=== PATIENT | female | born 1985 | race African-American/Black ===

== ENCOUNTER 2018-01-24 11:33 | Inpatient (IN) ==
[2018-01-24] MEDS ORDERED: FAMOTIDINE 20 MG/2 ML VIAL IV ONE (11:40)
[2018-01-24] MEDS ORDERED: ceFAZolin 2,000 MG in PREMIX 1 EACH IV ONE (11:40)
[2018-01-24] MEDS ORDERED: CITRIC ACID/SODIUM CITRATE 30 ML UDCUP PO ONE (11:40)
[2018-01-24] MEDS ORDERED: OXYTOCIN 30 UNIT in DEXTROSE 5% LACTATED RINGERS 1,000 ML IV ONE (11:44)
[2018-01-24] MEDS ORDERED: OXYTOCIN 10 UNIT/ML VIAL IM ONE (11:44)
[2018-01-24] MEDS ORDERED: SODIUM CHLORIDE 0.9% 1,000 ML IV PRN (11:45)
[2018-01-24] MEDS ORDERED: miSOPROStol 200 MCG TABLET PO ONE ×2 (11:51→18:15)
[2018-01-24] MEDS ORDERED: OXYTOCIN 30 UNIT in LACTATED RINGERS 1,000 ML IV ONE (12:00)
[2018-01-24 12:06] LABS: Basophils % 0.1 % (0.0-0.8); Eosinophils # 0.1 10*3/uL (0.0-0.87); Eosinophils % 1.6 % (0.00-10.9); Hematocrit 28.8 VOL% (35.7-47.0); Immature Granulocytes % 0.3 %; Immature Granulocytes Absolute 0.03 #; Lymphocytes # 1.6 10*3/uL (1.4-4.0); Lymphocytes % 17.9 % (21.3-54.2); Mean Corpuscular HGB Conc 31.3 GM/DL (32-36); Mean Corpuscular Hemoglobin 24 PG (27-34); Mean Corpuscular Volume 77.6 FL (87-102); Mean Platelet Volume 11.3 FL (9.6-12.0); Monocytes # 0.5 10*3/uL (0.11-0.8); Monocytes % 5.2 % (1.7-12.7); Neutrophils # 6.5 10*3/uL (1.4-7.4); Neutrophils % 74.9 % (38.7-73.9); Platelet Count 167 T/CUMM (130-400); Red Blood Count 3.71 MC/CUMM (3.8-5.5); Red Cell Distribution Width 14.7 % (9.3-17.3); White Blood Count 8.7 T/CUMM (4-12)
[2018-01-24 12:17] LABS: Apearance,Urine CLEAR (Clear); Bilirubin,Urine Negative (Negative); Blood, Urine Negative (Negative); Glucose,Urine (UA) Negative (Negative); Hyaline Casts,Urine 1 /LPF (0-3); Ketones,Urine Negative (Negative); Mucus,Urine Occasional /LPF (Occasional); Nitrite,Urine Negative (Negative); Protein,Urine 100 MG/DL; RBC,Urine <1 /HPF (0-4); Squamous Epithelial Cell,Urine Occasional /HPF (0-10); Urine Color Yellow (Yellow); Urine Specific Gravity 1.011 (1.001-1.035); Urine Urobilinogen < 2.0 EU/DL (0.2-1.0); WBC,Urine 1 /HPF (0-6)
[2018-01-24 12:22] LABS: PT Patient Result 10.4 SECS; Partial Thromboplastin Time 30.6 SECS (0-40)
[2018-01-24] MEDS: MEPERIDINE 50 MG/1 ML VIAL IV PRN ×4 (12:22→21:06)
[2018-01-24] MEDS: ONDANSETRON 4 MG/2 ML VIAL IV PRN ×2 (12:25→21:07)
[2018-01-24 13:40] LABS: HIV Antigen/Antibody Result Nonreactive (Nonreactive); Hepatitis B Surface Ag Quant 0.24 Index; Hepatitis B Surface Ag Result Negative (Negative)
[2018-01-24] MEDS: LACTATED RINGERS 1,000 ML IV SCH ×2 (14:00→18:29)
[2018-01-24 14:14] LABS: Barbiturates Screen,Urine Negative (Negative); Benzodiazepines Screen,Urine Positive (Negative); Cannabinoid Screen,Urine Negative (Negative); Opiate Screen,Urine Negative (Negative); Phencyclidine Screen,Urine Negative (Negative)
[2018-01-25] MEDS: MEPERIDINE 50 MG/1 ML VIAL IV PRN ×5 (00:08→11:58)
[2018-01-25] MEDS ORDERED: OXYTOCIN/LR 20 UNIT/1,000 ML BAG IV ONE ×2 (00:33→15:25)
[2018-01-25] MEDS ORDERED: OXYTOCIN/LR 20 UNIT/1,000 ML BAG IV SCH (01:00)
[2018-01-25] MEDS: LACTATED RINGERS 1,000 ML IV SCH ×3 (02:14→16:58)
[2018-01-25] MEDS: ONDANSETRON 4 MG/2 ML VIAL IV PRN (03:07)
[2018-01-25 05:31] LABS: Basophils % 0.1 % (0.0-0.8); Eosinophils % 0.3 % (0.00-10.9); Hematocrit 26.3 VOL% (35.7-47.0); Hemoglobin 8.7 GM/DL (12.0-16.0); Immature Granulocytes % 0.7 %; Lymphocytes # 1.4 10*3/uL (1.4-4.0); Lymphocytes % 9.2 % (21.3-54.2); Mean Corpuscular HGB Conc 33.1 GM/DL (32-36); Mean Corpuscular Hemoglobin 24 PG (27-34); Mean Corpuscular Volume 73.9 FL (87-102); Mean Platelet Volume 11.6 FL (9.6-12.0); Monocytes # 0.5 10*3/uL (0.11-0.8); Monocytes % 3.5 % (1.7-12.7); Neutrophils % 86.2 % (38.7-73.9); Platelet Count 129 T/CUMM (130-400); Red Blood Count 3.56 MC/CUMM (3.8-5.5); Red Cell Distribution Width 14.6 % (9.3-17.3); White Blood Count 15.1 T/CUMM (4-12)
[2018-01-25] MEDS ORDERED: miSOPROStol 200 MCG TABLET ONE (06:16)
[2018-01-25] MEDS: ceFAZolin 1,000 MG in SYRINGE 1 EACH IV SCH ×2 (12:19→19:47)
[2018-01-25] MEDS ORDERED: LANOLIN 50% CREAM 0.3 OZ TUBE TOP PRN (15:25)
[2018-01-25] MEDS ORDERED: ACETAMINOPHEN 325 MG TABLET PO PRN (15:25)
[2018-01-25] MEDS ORDERED: BENZOCAINE 20%/MENTHOL 0.5% SPRAY 56 GM CAN TOP PRN (15:25)
[2018-01-25] MEDS ORDERED: MEASLES/MUMPS/RUBELLA VACCINE 0.5 ML VIAL SUBCUT ONE (15:25)
[2018-01-25] MEDS ORDERED: WITCH HAZEL PADS 100/JAR TOP PRN (15:25)
[2018-01-25] MEDS ORDERED: DIPH/TET/ACEL PERT BOOSTER VACCINE 0.5 ML VIAL IM ONE (15:25)
[2018-01-25] MEDS ORDERED: BISACODYL 10 MG SUPP RECTAL PRN (15:25)
[2018-01-25] MEDS ORDERED: RHO(D) IMMUNE GLOBULIN 300 MCG SYRINGE IM ONE (15:25)
[2018-01-25] MEDS ORDERED: HYDROCORTISONE 2.5% RECTAL CREAM 30 GM TUBE TOP PRN (15:25)
[2018-01-25] MEDS: FERROUS SULFATE 325 MG TABLET PO SCH (16:23)
[2018-01-25] MEDS: IBUPROFEN 800 MG TABLET PO PRN (16:23)
[2018-01-25] MEDS: ACETAMINOPHEN/CODEINE 300-30 MG TABLET PO PRN ×2 (16:24→22:04)
[2018-01-25] MEDS: MULTIVITAMIN (PRENATAL) TABLET PO SCH (18:55)
[2018-01-26] MEDS: DOCUSATE SODIUM 100 MG CAPSULE PO SCH ×3 (01:02→20:03)
[2018-01-26] MEDS: ceFAZolin 1,000 MG in SYRINGE 1 EACH IV SCH ×2 (01:59→08:30)
[2018-01-26 06:13] LABS: Basophils % 0.2 % (0.0-0.8); Eosinophils # 0.1 10*3/uL (0.0-0.87); Hematocrit 21.5 VOL% (35.7-47.0); Immature Granulocytes % 0.7 %; Immature Granulocytes Absolute 0.07 #; Lymphocytes # 2.7 10*3/uL (1.4-4.0); Lymphocytes % 25.6 % (21.3-54.2); Mean Corpuscular HGB Conc 31.6 GM/DL (32-36); Mean Corpuscular Hemoglobin 25 PG (27-34); Mean Corpuscular Volume 77.6 FL (87-102); Mean Platelet Volume 13.3 FL (9.6-12.0); Monocytes # 0.6 10*3/uL (0.11-0.8); Monocytes % 5.3 % (1.7-12.7); Neutrophils # 7.2 10*3/uL (1.4-7.4); Neutrophils % 67.2 % (38.7-73.9); Platelet Count 108 T/CUMM (130-400); Red Cell Distribution Width 14.8 % (9.3-17.3); White Blood Count 10.7 T/CUMM (4-12)
[2018-01-26 06:15] LABS: Red Blood Count 2.77 MC/CUMM (3.8-5.5)
[2018-01-26 06:16] LABS: Hemoglobin 6.8 GM/DL (12.0-16.0)
[2018-01-26] MEDS ORDERED: SODIUM CHLORIDE 0.9% 1,000 ML IV PRN (08:00)
[2018-01-26] MEDS: FERROUS SULFATE 325 MG TABLET PO SCH (10:07)
[2018-01-26] MEDS: MULTIVITAMIN (PRENATAL) TABLET PO SCH (10:08)
[2018-01-26] MEDS: ACETAMINOPHEN/CODEINE 300-30 MG TABLET PO PRN ×2 (14:15→20:03)
[2018-01-26] MEDS ORDERED: RHO(D) IMMUNE GLOBULIN 300 MCG SYRINGE IM ONE (18:30)
[2018-01-26 18:37] LABS: Hematocrit 27.9 VOL% (35.7-47.0); Hemoglobin 9.2 GM/DL (12.0-16.0)
[2018-01-26] MEDS: IBUPROFEN 800 MG TABLET PO PRN (18:45)
[2018-01-26] MEDS ORDERED: SIMETHICONE CHEW 80 MG TABLET PO PRN (20:04)
[2018-01-27] MEDS ORDERED: MAGNESIUM HYDROXIDE SUSP 30 ML UDCUP PO PRN (07:40)
[2018-01-27] MEDS: DOCUSATE SODIUM 100 MG CAPSULE PO SCH (09:10)
[2018-01-27] MEDS: FERROUS SULFATE 325 MG TABLET PO SCH (09:11)
[2018-01-27] MEDS: MULTIVITAMIN (PRENATAL) TABLET PO SCH (09:11)
[2018-01-27] MEDS: IBUPROFEN 800 MG TABLET PO PRN (11:25)
[2018-01-27 11:39] VITALS: BP 128/85
== END 2018-01-27 13:45 | disposition home or self-care (01) | DRG 560 ==
LOC: N.LDOUT 11:33 → N.LD 11:40 → N.OB 01-25 15:01
PROVIDERS: ADMIT Obstetrics & Gynecology; ATTEND Obstetrics & Gynecology